=== PATIENT | male | born 1960 | race Caucasian/White ===

== ENCOUNTER → 2022-11-10 | Outpatient (CLI) | payer OTHER ==
[~2022-11-10] MED LIST: ACET-683 PO; ALBU6.7H6 INH; CVS500CA5 PO; ELDE350C PO; FLAX100012 PO; INCR1INH IN; PRAV20TA2 PO; VITADRO5 PO
== END ==
LOC: M RAD 09:09
PROVIDERS: ATTEND Internal Medicine Hematology & Oncology
DX: D45 Polycythemia vera (principal); R93.5 Abnormal findings on diagnostic imaging of other abdominal regions, including retroperitoneum

== ENCOUNTER → 2022-12-03 | Outpatient (CLI) | payer OTHER | LOC: M PLARAD 12:44 | PROVIDERS: ATTEND Nurse Practitioner | DX: R79.89 Other specified abnormal findings of blood chemistry (principal) ==